=== PATIENT | female | born 1930 | race Caucasian/White ===

== ENCOUNTER 2017-12-24 15:21 | Inpatient (IN) | payer MEDICARE ==
--- NOTE | 2017-12-24 17:08 | CT ---
CT BRAIN WITHOUT CONTRAST: Date: 12/24/17 HISTORY: Trauma, fall, dementia. FINDINGS: Comparison made with exam of 12/29/13. Changes of cortical atrophy and chronic small vessel ischemic disease are again seen. The ventricular size is stable and the basilar cisterns are patent. No evidence of acute infarct, hemorrhage, midlin e shift, or abnormal extra-axial fluid collections are seen. The bony calvarium is intact. The visual ized paranasal sinuses and mastoid air cells are well aerated. IMPRESSION: No CT evidence of acute intracranial process. POS: [facility]
--- NOTE | 2017-12-24 17:10 | CT ---
CT FACIAL BONES WITH CORONAL AND SAGITTAL REFORMATIONS: Date: 12/24/17 HISTORY: Fall, trauma, bruising to right side of face. FINDINGS/IMPRESSION: No facial bone fracture is seen. The visualized paranasal sinuses and mastoid air cells are well aera renetta. No temporomandibular dislocation is seen. There is soft tissue swelling of the right cheek. POS: [facility]
--- NOTE | 2017-12-24 17:12 | RAD ---
2 VIEWS RIGHT HIP: Date; 12/24/17 COMPARISON: 12/10/11. HISTORY: Fall, trauma, pain. FINDINGS: There is a total hip arthroplasty on the right. There is heterotopic bone superior to the right great er trochanter. There is no evidence for hardware failure. No displaced fracture or evidence of disloc ation is seen. There is atherosclerotic calcification involving the medial aspect of the right thigh. The bones appear demineralized, limiting detailed assessment for nondisplaced fracture. IMPRESSION: Postoperative changes. No displaced fracture or evidence of dislocation seen. POS: [facility]
--- NOTE | 2017-12-24 17:16 | CT ---
CERVICAL SPINE CT WITHOUT CONTRAST: Date: 12/24/17 COMPARISON: None. HISTORY: Fall, injury, pain, dementia. TECHNIQUE: Serial axial CT imaging obtained at 2 mm intervals from the skull base through the lung apices withou t contrast. Coronal and sagittal reformatted imaging obtained. FINDINGS: The imaged lung apices demonstrate mild biapical interstitial thickening. The imaged paranasal sinuse s/mastoid air cells appear well aerated. The craniocervical junction, the atlantoaxial interspace, the occipital condyles, the dens, and the C 1-2 articulation demonstrate no acute findings. Motion artifact limits assessment of the mandible on the coronal imaging. Cervical vertebral body height and alignment appears within normal limits, with no evidence for ante rolisthesis or retrolisthesis. No prevertebral soft tissue swelling. The C1 ring is intact. No displaced fracture or evidence of dislocation is seen within the cervical spine. There is multilev el cervical spine facet and uncovertebral osteophyte formation, right greater than left. There is atherosclerotic calcification near the origin of the great vessels and involving the distal aspect of bilateral internal carotid arteries. IMPRESSION: No evidence for acute fracture or dislocation within the cervical spine. POS: [facility]
[2017-12-24 17:21] LABS: #Lymphocytes 1.8 thou/uL (1.20-3.40); #Monocytes 0.7 thou/uL (0.11-0.59); #Neutrophils 6.8 thou/uL (1.40-6.50); %Basophils 0.5 % (0.0-1.0); %Eosinophils 0.2 % (0.0-10.0); %Lymphocytes 19.8 % (21.0-51.0); %Neutrophils 72.5 % (42.0-75.0); Hemoglobin 12.5 g/dL (12.0-16.0); Mean Corpuscular HGB CONC 36.3 g/dL (32.0-36.0); Mean Corpuscular Volume 82.7 fL (78.0-98.0); Mean Platelet Volume 6.2 fL (7.4-10.4); Platelet Count 248 thou/uL (130-400); RBC Distribution Width 9.9 % (11.5-14.5); Red Blood Cell (RBC) Count 4.15 mill/uL (4.20-5.40); White Blood Cell (WBC) Count 9.3 thou/uL (4.8-10.8)
[2017-12-24 17:29] LABS: Bilirubin Negative (Negative); Blood, Urine Trace (Negative); Clarity Clear (Clear); Glucose, Urine (Dipstick) Negative (Negative); Leukocyte Negative (Negative); Nitrite Negative (Negative); Protein, Urine (Dipstick) Negative (Neg-Trace); Specific Gravity, Urine 1.015 (1.005-1.030); pH, Urine 6.5 (5.0-9.0)
[2017-12-24 17:32] LABS: ALT (SGPT) 25 U/L (8-55); AST (SGOT) 88 U/L (5-34); Albumin 3.8 g/dL (3.4-4.8); Alkaline Phosphatase 108 U/L (40-150); Anion Gap 16 mmol/L (10-20); BUN (Urea Nitrogen) 18 mg/dL (9.8-20.1); Bilirubin, Total 0.9 mg/dL (0.2-1.2); Calc. Creatinine Clearance 0 mL/min (70-130); Carbon Dioxide 22 mmol/L (23-31); Chloride 78 mmol/L (98-107); Estimated GFR-MDRD 56; Globulin 3.4 g/dL (2.4-3.5); Glucose 152 mg/dL (83-110); Potassium 4.2 mmol/L (3.5-5.1); Protein, Total 7.2 g/dL (6.0-8.3)
[2017-12-24 17:35] LABS: Sodium 112 mmol/L (136-145)
[2017-12-24 17:38] LABS: Bacteria/HPF Rare-Few HPF (None Seen); RBC/HPF 0-3 HPF (0-3); Squamous Epithelial 0-3 HPF (0-3); WBC/HPF None Seen HPF (0-3)
[2017-12-24 17:41] LABS: CKMB 13.5 ng/mL (0-6.6); Critical Call Chem Troponin I 0; Troponin I 0.784 ng/mL (< 0.028)
[2017-12-24] MEDS ORDERED: Cyanide Antidote Kit ONE (17:58)
[2017-12-24] MEDS ORDERED: Enoxaparin Sodium 100 MG/ML SYRINGE ONE (18:06)
[2017-12-24 20:40] LABS: Troponin I 0.988 ng/mL (< 0.028)
[2017-12-24 21:49] LABS: Osmolality, Serum 238 mOsm/kg (280-295)
[2017-12-24] MEDS ORDERED: Ondansetron HCl/PF 4 MG/2 ML Vial IVP PRN (22:29)
[2017-12-24] MEDS ORDERED: Acetaminophen 325 MG TAB PO PRN (22:29)
[2017-12-24] MEDS ORDERED: Ondansetron ODT 4 MG TAB SL PRN (22:29)
[2017-12-24 23:05] LABS: Sodium 108 mmol/L (136-145)
[2017-12-24 23:25] LABS: Troponin I 0.923 ng/mL (< 0.028)
[2017-12-25 00:27] VITALS: BMI 37.9
[2017-12-25] MEDS ORDERED: Acetaminophen 500 MG TAB PO PRN (00:56)
[2017-12-25] MEDS ORDERED: Lorazepam 0.5 MG TAB PO PRN (00:56)
[2017-12-25] MEDS ORDERED: Sodium Chloride 3% 500 ML IVPB SCH ×3 (01:00→19:30)
[2017-12-25 02:07] LABS: Anion Gap 15 mmol/L (10-20); BUN (Urea Nitrogen) 16 mg/dL (9.8-20.1); Calc. Creatinine Clearance 75 mL/min (70-130); Calcium 8.8 mg/dL (7.8-10.44); Carbon Dioxide 23 mmol/L (23-31); Chloride 77 mmol/L (98-107); Estimated GFR-MDRD 64; Glucose 129 mg/dL (83-110); Potassium 3.7 mmol/L (3.5-5.1)
[2017-12-25 02:13] LABS: Sodium 111 mmol/L (136-145)
[2017-12-25 03:22] LABS: Anion Gap 14 mmol/L (10-20); BUN (Urea Nitrogen) 15 mg/dL (9.8-20.1); Calc. Creatinine Clearance 75 mL/min (70-130); Calcium 8.7 mg/dL (7.8-10.44); Carbon Dioxide 22 mmol/L (23-31); Chloride 78 mmol/L (98-107); Estimated GFR-MDRD 64; Glucose 119 mg/dL (83-110); Potassium 4.2 mmol/L (3.5-5.1); Sodium 110 mmol/L (136-145)
[2017-12-25 03:27] LABS: Band 1 % (5-11); Hemoglobin 12.4 g/dL (12.0-16.0); Lymphocytes 22 % (21-51); MDiff Complete? YES; Mean Corpuscular HGB CONC 36.8 g/dL (32.0-36.0); Mean Corpuscular Hemoglobin 32.4 pg (27.0-31.0); Mean Corpuscular Volume 88.1 fL (78.0-98.0); Mean Platelet Volume 7.7 fL (7.4-10.4); Monocytes 11 % (0-10); Neutrophil 66 % (42-75); PLT Morphology Comment Appears Decreased; Platelet Count 117 thou/uL (130-400); RBC Distribution Width 11.1 % (11.5-14.5); RBC Morphology Normal; Red Blood Cell (RBC) Count 3.82 mill/uL (4.20-5.40); White Blood Cell (WBC) Count 7.4 thou/uL (4.8-10.8)
[2017-12-25] MEDS ORDERED: Dextrose 5% in Water 1,000 ML IV PRN (04:01)
[2017-12-25] MEDS ORDERED: Insulin Regular 300 UNITS/3 ML VIAL SC PRN (04:01)
[2017-12-25] MEDS ORDERED: Dextrose 50% Abboject 50 ML SYRINGE SLOW IVP PRN (04:01)
[2017-12-25 05:37] LABS: Anion Gap 15 mmol/L (10-20); BUN (Urea Nitrogen) 14 mg/dL (9.8-20.1); Calc. Creatinine Clearance 85 mL/min (70-130); Calcium 8.3 mg/dL (7.8-10.44); Carbon Dioxide 18 mmol/L (23-31); Chloride 78 mmol/L (98-107); Estimated GFR-MDRD 74; Glucose 110 mg/dL (83-110); Potassium 3.4 mmol/L (3.5-5.1)
[2017-12-25 05:42] LABS: Sodium 108 mmol/L (136-145)
[2017-12-25] MEDS: Sodium Chloride 3% 500 ML IVPB SCH ×2 (07:21→15:35)
[2017-12-25 08:06] LABS: Anion Gap 11 mmol/L (10-20); BUN (Urea Nitrogen) 13 mg/dL (9.8-20.1); Calc. Creatinine Clearance 81 mL/min (70-130); Calcium 8.6 mg/dL (7.8-10.44); Carbon Dioxide 24 mmol/L (23-31); Chloride 80 mmol/L (98-107); Estimated GFR-MDRD 73; Glucose 105 mg/dL (83-110); Potassium 3.5 mmol/L (3.5-5.1)
[2017-12-25 08:12] LABS: Sodium 111 mmol/L (136-145)
--- NOTE | 2017-12-25 08:27 | HP ---
CODE STATUS: DNR/DNI. I have discussed with daughter-power of erisa attorney at bedside. PRIMARY CARE PHYSICIAN: Dr. Radha Yan. TIME OF EVALUATION: 11:35 p.m. CHIEF COMPLAINT: Status post fall. HISTORY OF PRESENT ILLNESS: This is an 87-year-old female patient with past medical history of demen tia, came to the hospital after having a fall in the intermediate, history regarding fall is not very clear, patient hit her face on the right side. As per report, patient has had some nausea, associat ed gait unsteadiness, patient had been received some change in medications regarding her bilateral le g edema reportedly had been started on metolazone. She has also reported that the patient has past m edical history of low sodium, with level of sodium 108 in 2017. At that time, she had been seen by Sofia Ervin. Symptoms were reported as severe, no alleviating factors. The patient's sodium was f ound to be 110, came down to 108. Case discussed with Dr. Ervin, we will treat with 3% with a g oal of correction of 4 mEq every 2 hours. REVIEW OF SYSTEMS: Unable to obtain. Patient has dementia. PAST MEDICAL HISTORY: Hyponatremia, SIADH, hyperlipidemia, hypertension, dementia. PAST SURGICAL HISTORY: Knee replacement, hip replacement, back surgery and stents, hysterectomy. SOCIAL HISTORY: Patient lives in a intermediate, no alcohol, no drugs. FAMILY HISTORY: Reviewed and noncontributory for current presentation. ALLERGIES: No known drug allergies. REPORTED MEDICATIONS: Metolazone, metformin, Namenda, niacin, nystatin, omeprazole, potassium chlori de, psyllium, sulfamethoxazole and trimethoprim, triamcinolone, Tylenol, aspirin, atorvastatin, carve dilol, citalopram, docusate, donepezil, ferrous gluconate, Lasix, haloperidol, ketaconazole, lisinopr il, lorazepam. PHYSICAL EXAMINATION: VITAL SIGNS: On presentation blood pressure 142/57 with heart rate 72, respiratory rate was 18, temp erature 98.6, oxygen saturation 94% on room air. GENERAL APPEARANCE: The patient is alert, disoriented, not in any acute distress. HEENT: Eyes, normal conjunctivae. Moist oral mucosa. Anicteric. Patient has right periorbital hem atoma. RESPIRATORY: Bilateral air entry. No rales, no wheezing. Symmetric expansion. CARDIOVASCULAR: Normal rate, regular rhythm. No murmurs, no gallop, no edema. ABDOMEN: Soft, normal bowel sounds. MUSCULOSKELETAL: Patient has generalized weakness, no tenderness. SKIN: Warm and dry. No pallor, no rash, no redness. NEUROLOGIC: Baseline sensory. No evidence of any new focal weakness. Baseline speech, cranial nerv es seem to be intact. PSYCHIATRIC: Patient is in good mood, underlying dementia, suboptimal judgment. IMAGING: EKG was reviewed discussed with the performing physician, first-degree AV block, left anter ior fascicular block, moderate voltage criteria for LVH. No evidence of any acute ischemia. Radiolo gy: Head CT, right cheek contusion with no evidence of fracture, soft tissue swelling without eviden ce of fracture. Cervical spine CT was negative for acute findings, multilevel degenerative joint dis ease, but no acute fractures. Lower extremity, hip films negative on the right reports were done by radiologist. LABORATORY DATA AND X-RAY FINDINGS: Reviewed, patient has white count 7.4, hemoglobin 12, platelet c ount 117. Chemistry: Initial sodium 112, second sodium 108, third sodium 110. Serum osmolarity 238 . Troponin 0.7, second one 0.9, . Urine sodium 84. Urine osmolality 447. ASSESSMENT AND PLAN: The patient will be placed in the hospital with following medical problems: 1. Status post fall, likely secondary to hyponatremia. We will treat underlying condition, recommen dations regarding safety in intermediate has been discussed with daughter at bedside. 2. Severe hyponatremia. Patient has sodium of 112 on presentation, came down to 108. After startin g hypertonic saline came out to 110, we will replace sodium with 3% hypertonic saline for now for 25 mL hours, dose has been adjusted per Dr. Ervin's recommendation. We will follow recommendation. Likely secondary to syndrome of inappropriate antidiuretic hormone secretion. 3. Possible syndrome of inappropriate antidiuretic hormone secretion, patient has a history of hypon atremia. It was severe in past year, treated by Dr. Ervin. Patient has high urinary sodium, hi gh urine osmolality, and low sodium osmolality that goes with syndrome of inappropriate antidiuretic hormone secretion. Treatment as above. 4. Non-ST elevation myocardial infarction, possible type 2, troponin 0.7, second one 0.9, patient tapia d Lovenox prior to transfer to the hospital. Dr. Richardson, patient's hogshead salvage, has been consulte d, we will follow recommendation. Home medications has been reconciled. 5. Underlying dementia, patient is confused, in good mood, reconcile home medications. We will need a support as inpatient. 6. Hyperlipidemia, reconcile home medications. Low cholesterol diet has advised. 7. Controlled hypertension, reconcile home medications. Adjust treatment as needed. 8. Uncontrolled diabetes. The patient presented with blood sugar 152, we will place the patient on sliding scale and low carbohydrate diet. 9. Deep venous thrombosis prophylaxis.
[2017-12-25] MEDS ORDERED: Niacin 500 MG TAB PO SCH (09:00)
[2017-12-25] MEDS ORDERED: Potassium Chloride 8 MEQ TAB PO SCH (09:00)
[2017-12-25] MEDS ORDERED: Ferrous Gluconate 324 MG TAB PO SCH (09:00)
[2017-12-25] MEDS ORDERED: Citalopram 10 MG TAB PO SCH (09:00)
[2017-12-25] MEDS ORDERED: Non-Formulary Item 1 EACH (Omeprazole [Omeprazole] 20 MG) PO SCH (09:00)
[2017-12-25] MEDS: Docusate 100 MG CAP PO SCH (09:36)
[2017-12-25] MEDS: Aspirin 325 MG TAB PO SCH (09:36)
[2017-12-25] MEDS: Lisinopril 20 MG TAB PO SCH (09:36)
[2017-12-25] MEDS: Carvedilol 25 MG TAB PO SCH (09:37)
[2017-12-25] MEDS: Enoxaparin Sodium 40 MG/0.4 ML SYRINGE SC SCH (09:37)
[2017-12-25] MEDS: Ketoconazole 2% Cream 15 gm Tube TOP SCH ×2 (09:38→20:32)
[2017-12-25] MEDS: Nystatin Powder 15 GM BOT TOP SCH ×2 (09:38→20:32)
[2017-12-25] MEDS: Metamucil PACK PO SCH (09:38)
[2017-12-25 11:50] LABS: Anion Gap 15 mmol/L (10-20); BUN (Urea Nitrogen) 14 mg/dL (9.8-20.1); Calc. Creatinine Clearance 77 mL/min (70-130); Calcium 8.3 mg/dL (7.8-10.44); Carbon Dioxide 19 mmol/L (23-31); Chloride 82 mmol/L (98-107); Estimated GFR-MDRD 69; Glucose 130 mg/dL (83-110)
[2017-12-25 11:55] LABS: Sodium 112 mmol/L (136-145)
[2017-12-25 13:50] LABS: Anion Gap 15 mmol/L (10-20); BUN (Urea Nitrogen) 16 mg/dL (9.8-20.1); Calc. Creatinine Clearance 70 mL/min (70-130); Carbon Dioxide 18 mmol/L (23-31); Chloride 82 mmol/L (98-107); Estimated GFR-MDRD 62; Glucose 160 mg/dL (83-110)
[2017-12-25 13:57] LABS: Sodium 111 mmol/L (136-145)
[2017-12-25 14:39] LABS: Anion Gap 14 mmol/L (10-20); BUN (Urea Nitrogen) 17 mg/dL (9.8-20.1); Calc. Creatinine Clearance 70 mL/min (70-130); Carbon Dioxide 17 mmol/L (23-31); Chloride 84 mmol/L (98-107); Estimated GFR-MDRD 62; Glucose 149 mg/dL (83-110); Potassium 3.8 mmol/L (3.5-5.1)
[2017-12-25 14:46] LABS: Sodium 111 mmol/L (136-145)
--- NOTE | 2017-12-25 16:07 | PDOC.PN ---
- Subjective Encounter Start Date: 12/25/17 Encounter Start Time: 16:00 Subjective: f/u for severe hyponatremia and fall. Currently on hypertonic saline -: but Na+ remains in 111-112 range. - Objective Resuscitation Status: Resuscitation Status DNR:Do Not Resuscitate MAR Reviewed: Yes Vital Signs & Weight: Vital Signs (12 hours) Temp Pulse Resp Pulse Ox 12/25/17 12:00 98.6 F 12/25/17 08:00 98.5 F 69 19 95 12/25/17 05:00 98.1 F Weight Weight 215 lb 1.6 oz Most Recent Monitor Data Heart Rate from ECG 66 NIBP 78/35 NIBP BP-Mean 48 Respiration from ECG 13 SpO2 94 I&O: 12/24/17 12/25/17 12/26/17 06:59 06:59 06:59 Intake Total 120 487 Output Total 1200 862 Balance -1080 -375 Result Diagrams: 12/25/17 02:45 12/25/17 14:03 Additional Labs: Accuchecks 12/25/17 12/25/17 11:59 06:43 POC Glucose 153 H 122 H Radiology Reviewed by me: Yes (CT brain - negative) EKG Reviewed by me: Yes (Tele - SR) Phys Exam - Physical Examination sleeping HEENT: PERRLA, sclera anicteric, oral pharynx no lesions Neck: no nodes, no JVD, supple, full ROM Respiratory: no wheezing, no rales, no rhonchi, clear to auscultation bilateral S1, S2 Cardiovascular: RRR, no significant murmur, no rub, gallop Gastrointestinal: soft, non-tender, no distention, positive bowel sounds Musculoskeletal: pulses present, edema present sleeping, + spontaneous movements and fasciculations of extremities Skin: no rash, normal turgor, cap refill <2 seconds Deviation from normal: Verdugo with dark, dayami urine Dx/Plan (1) Hyponatremia Code(s): E87.1 - HYPO-OSMOLALITY AND HYPONATREMIA Status: Acute Comment: severe hyponatremia on current hypertonic saline gtt, serial Na+ q2h (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 Comment: See #1, Nephrology service following (3) Fall Code(s): W19.XXXA - UNSPECIFIED FALL, INITIAL ENCOUNTER Status: Acute Comment: PT evaluation for functional assessment when stable (4) NSTEMI (non-ST elevated myocardial infarction) Code(s): I21.4 - NON-ST ELEVATION (NSTEMI) MYOCARDIAL INFARCTION Status: Acute Comment: Consult Cardiology, continue ASA 325mg daily, check 2D echo for wall motion abnormalities and EF (5) Alzheimer's dementia Code(s): G30.9 - ALZHEIMER'S DISEASE, UNSPECIFIED Status: Chronic Comment: Continue Aricept and Namenda - Plan plan discussed w/ family, PT/OT, DVT proph w/SCDs Continue NS 3% IV with serial Na+ -: May consider more volume replacement as clinically dehydrated -: Check 2D echo -: Hold Lisinopril and Coreg due to hypotension -: AM lab: BMP, serial Na+ * .
[2017-12-25 17:30] LABS: Anion Gap 13 mmol/L (10-20); BUN (Urea Nitrogen) 17 mg/dL (9.8-20.1); Calc. Creatinine Clearance 74 mL/min (70-130); Calcium 7.8 mg/dL (7.8-10.44); Carbon Dioxide 19 mmol/L (23-31); Chloride 88 mmol/L (98-107); Estimated GFR-MDRD 66; Glucose 129 mg/dL (83-110); Potassium 3.7 mmol/L (3.5-5.1)
[2017-12-25 17:33] LABS: Sodium 116 mmol/L (136-145)
[2017-12-25 19:58] LABS: Anion Gap 11 mmol/L (10-20); BUN (Urea Nitrogen) 16 mg/dL (9.8-20.1); Calc. Creatinine Clearance 76 mL/min (70-130); Carbon Dioxide 20 mmol/L (23-31); Chloride 90 mmol/L (98-107); Estimated GFR-MDRD 68; Glucose 146 mg/dL (83-110); Potassium 3.5 mmol/L (3.5-5.1)
[2017-12-25 20:01] LABS: Sodium 117 mmol/L (136-145)
[2017-12-25] MEDS: Atorvastatin Calcium 20 MG TAB PO SCH (20:31)
[2017-12-25] MEDS ORDERED: Donepezil HCl 5 MG TAB PO SCH (21:00)
[2017-12-25 21:53] LABS: Sodium 118 mmol/L (136-145)
[2017-12-25 23:43] LABS: Sodium 119 mmol/L (136-145)
[2017-12-26 02:39] LABS: Sodium 119 mmol/L (136-145)
--- NOTE | 2017-12-26 03:14 | CON ---
DATE OF CONSULTATION: 12/25/2017 CONSULTING PHYSICIAN: Aziza Hylton MD REQUESTING PHYSICIAN: Dr. Layne. ER PHYSICIAN: Leopold. REASON FOR CONSULTATION: Severe symptomatic hyponatremia. IMPRESSION: Severe symptomatic hyponatremia. This is likely in the context of syndrome of inappropriate antidiur etic hormone compounded by the recent use of hydrochlorothiazide. PLAN: 1. Urine osmolarity and urine sodium to rule out SIADH. 2. High-protein intake and be aware of animal meat. 3. Hypotonic saline with the goal of increase in the sodium level by 1-point every 2 hours. The pat ient will need critical care admission for close monitoring. 4. Once the sodium level has been stabilized around 120, we transitioned this patient over to SIADH is confirmed. 5. Further management will be dependent on the clinical course. HISTORY OF PRESENT ILLNESS: History is that of an 87-year-old female patient with a known history of hyponatremia in the context of SIADH, who I took care of sometime last year with similar complaint. This time around, the patient took a fall and presented to the ER and noted to be severely hyponatre felipe with sodium level of 112. Over the course of stay in the ER, sodium level has dropped down to 10 8 necessitating need for renal consultation. The patient denies any nausea or vomiting. However, of note, patient recently was placed on metolazone in addition to the patient placed on diuretics to co ntrol the lower extremity edema. PAST MEDICAL HISTORY: Significant for hyponatremia, SIADH, dyslipidemia, hypertension, dementia. MEDICATIONS: Reviewed and as documented on [employer]. SOCIAL HISTORY: No alcohol, no tobacco, no illicit drug use. REVIEW OF SYSTEMS: Could not be obtained given the mental status of this patient. FAMILY HISTORY: None significantly related to presenting illness. ALLERGIES: No known drug allergy. PHYSICAL EXAMINATION: GENERAL: The patient was found to be alert. VITAL SIGNS: Noted with the following vital signs, afebrile, blood pressure 116/54, respiratory rate of 18, O2 sat of 97%. HEENT: Unremarkable with dry oral mucosa. NECK: Supple. No conjunctival injection or icterus. CARDIOVASCULAR SYSTEM: First and second heart sounds were heard. RESPIRATORY SYSTEM: Clear to auscultation. DIGESTIVE SYSTEM: Revealed a benign abdomen with positive bowel sounds. EXTREMITIES: No peripheral edema. SKIN: No new gross rash. LYMPHATICS: No peripheral lymphadenopathy. SUMMARY: An 87-year-old female patient with a known history of hyponatremia, who presented with jon re symptomatic hyponatremia in the context of recent use of metolazone. We will strongly recommend t hat this patient avoid class of hydrochlorothiazide diuretics entirely.
--- NOTE | 2017-12-26 05:08 | CON ---
DATE OF CONSULTATION: 12/25/2017 HISTORY OF PRESENT ILLNESS: Raul is a pleasant 87-year-old female who was admitted early this morning after a fall. She has a history of mild dementia. She is living in assisted living. Her daughter who is at the bedside and was very helpful with the history. She was found to be severely hyponatremic and subsequently is being admitted for treatment. PAST MEDICAL HISTORY: Reportedly for SIADH. I ordered a cortisol and TSH and they are both normal today. She has a history of lipid disorder, hypertension, knee replacement, hip replacement, back surgery, coronary stenting, and hysterectomy. SOCIAL HISTORY: Non-smoker, nondrinker, nondrug user. ALLERGIES: She has no drug allergies. FAMILY HISTORY: Negative for lung disease. MEDICATIONS: Prior to admission, she was on metolazone, metformin, Namenda, niacin, nystatin, omeprazole, potassium, Bactrim, triamcinolone, atorvastatin, Coreg, citalopram, docusate, omeprazole, iron, Lasix, Haldol, ketaconazole, lisinopril, lorazepam. REVIEW OF SYSTEMS: 10 point system review completed; not obtainable. PHYSICAL EXAMINATION: GENERAL: She is confused. She does know where she is. She does know her name. She recognizes her daughter. VITAL SIGNS: Heart rate 68. Blood pressure is 92/37, respiratory rate 16. HEENT: Pupils react. Sclerae is anicteric. Extraocular movements are full. NECK: Supple, no lymphadenopathy. LUNGS: Clear. HEART: Regular rhythm, no S3, no murmur. ABDOMEN: Soft and nontender. EXTREMITIES: Without clubbing, cyanosis, or edema. NEUROLOGIC: Nonfocal. She is wheelchair bound normally. LABORATORY DATA: White count 7.4, hemoglobin 12.4, platelets 117,000. Sodium is up to 118 on admission of low of 108, 10:00 last night. Potassium 3.5, chloride 90, bicarbonate 20, BUN 16, creatinine 0.8, glucose 146. IMPRESSION: Hyponatremia likely secondary to syndrome of inappropriate antidiuretic hormone secretion. It is hard to believe someone in the detention could have taken a fluid excess. Given her relative hypotension, antihypertensives and her polypharmacy should be simplified. She had been followed with the other physicians caring for in the ICU. Debatable whether ongoing treatment of her lipids, we will change her length of life. She is on Coreg. Vitamin D. With regard to Celexa had after reviewed and see if SIADH has been reported this , but many of the antidepressants have been associated with SIADH in my experience. We will hold this for now. This is a 70 minute consult with greater than 50% of time spent on unit with coordination of care. RIKA
[2017-12-26 05:19] LABS: Sodium 120 mmol/L (136-145)
--- NOTE | 2017-12-26 06:16 | CON ---
DATE OF CONSULTATION: 12/25/2017 HISTORY OF PRESENT ILLNESS: This is an 87-year-old, white female that I have followed since 07/2008. At that time, I saw her for continuation of cardiac care after she moved to the area. In 02/2005, while living in [place], [place], she developed exertional fatigue as well as central chest pressure, which had been occurring for 1 month. She underwent cardiac catheterization and was found to have proximal left anterior descending lesion, and Taxus 3.0 x 16 mm stent was placed on 03/19/2005. She states that she only took Plavix for 1 month after that. In 10/2007, she was evaluated and underwent an IV Persantine- thallium testing without any ST segment changes, and no evidence of ischemia or infarction. She then moved to this area, and when I initially saw her, she was asymptomatic. She continued to be seen for periodic followup. In 12/2008, she complained of low energy level and it was recommended that she go to outpatient cardiac rehabilitation, which she did at [facility]. When she was seen on 07/26/2009, she complained of a discomfort in the right side of her chest when she was walking in the cold that lasted for approximately 5 minutes. She underwent Lexiscan Cardiolite testing, which was abnormal with evidence of mild ischemia in a small area of the distal anterior wall. With this finding , it was recommended that she undergo cardiac catheterization. This was performed in 08/2009. She had normal left ventricular function with ejection fraction of 50% to 55%. There was a 20% in-stent restenosis in the proximal LAD stent. Otherwise, her coronary arteries were unremarkable. She has continued to be followed in the office and has developed Alzheimer disease and is now at a snf. She was last seen in 02/2017, and at that time, she was fairly asymptomatic. She now is admitted after a fall at the snf. She has been found to be profoundly hyponatremic. Ms. Carter denies any recent chest discomfort. She had borderline elevated cardiac enzymes, and Cardiology consultation was requested. PAST MEDICAL HISTORY: Hypertension, diabetes, hypercholesterolemia, Alzheimer disease. OPERATIONS: Three sections, bilateral total knee replacement, open cholecystectomy, bilateral cataract surgery, hip replacement, hysterectomy. MEDICATIONS: Aspirin 325 daily, atorvastatin 20 at bedtime, carvedilol 25 b.i.d., citalopram 10 mg daily, Colace 100 daily, Aricept 10 at bedtime, Fergon 324 daily, furosemide 20 mg , Haldol 0.5 mg at bedtime, lisinopril 20 mg daily, lorazepam 0.5 mg q.8 hours p.r.n., Namenda 10 mg b.i.d., metformin 500 daily, niacin 500 daily, nystatin topical b.i.d., omeprazole 20 daily, KCl 8 mEq daily , Bactrim 1 b.i.d. ALLERGIES: None. SOCIAL HISTORY: She does not smoke or drink. 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 FAMILY HISTORY: Father had angina, started at age 51. Several myocardial infarctions and at age 67. Sister had unknown type of heart problem. No family history of CABG. REVIEW OF SYSTEMS: Unable to be obtained due to the patient's dementia. PHYSICAL EXAMINATION: VITAL SIGNS: Blood pressure 94/37 and pulse of 69. HEENT: PERRL. NECK: Supple. LUNGS: Chest is clear. CARDIAC: S1, S2 normal, without any S3, S4, or murmurs. ABDOMEN: Obese. Normal bowel sounds, no tenderness. EXTREMITIES: Revealed trace pretibial edema. NEUROLOGIC: The patient is alert, oriented, moves all extremities. SKIN: Warm and dry. LABORATORY DATA AND X-RAY FINDINGS: EKG revealed sinus rhythm with first- degree AV block, left anterior fascicular block. Hemoglobin 12.4, hematocrit 33.7, white count 7400, platelets 117,000. Sodium is as low as 108, most recent is 117. Potassium 3.5, chloride 90, carbon dioxide 20, BUN 16, creatinine 0.82. Troponin I 0.988. IMPRESSION: 1. Fall, probably secondary to severe hyponatremia. 2. History of coronary artery disease, status post stent placement in the proximal left anterior descending. In 2010, this continued to show good result. 3. Demand ischemia versus [id number] myocardial infarction. She denies any chest discomfort. 4. Hypertension. 5. Hypercholesterolemia. 6. Diabetes. 7. Dementia. PLAN: With a demented, snf patient who is DNR and not complaining of any chest pain, I do not feel any further evaluation is warranted for her abnormal troponin I. [facility]
[2017-12-26 07:31] LABS: Sodium 120 mmol/L (136-145)
[2017-12-26] MEDS: Sodium Chloride 0.9% 1,000 ML IV SCH ×3 (08:33→23:15)
[2017-12-26] MEDS: Aspirin 325 MG TAB PO SCH (08:34)
[2017-12-26] MEDS: Enoxaparin Sodium 40 MG/0.4 ML SYRINGE SC SCH (08:34)
[2017-12-26] MEDS: Docusate 100 MG CAP PO SCH (08:35)
[2017-12-26] MEDS: Metamucil PACK PO SCH (08:36)
[2017-12-26] MEDS: Ketoconazole 2% Cream 15 gm Tube TOP SCH ×3 (08:37→22:23)
[2017-12-26] MEDS: Nystatin Powder 15 GM BOT TOP SCH ×2 (08:37→22:23)
[2017-12-26 09:42] LABS: Sodium 122 mmol/L (136-145)
--- NOTE | 2017-12-26 10:49 | PRG ---
DATE OF SERVICE: 12/26/2017 Caroline Carter is doing well. I talked to her primary physician today about her. She was recently started on metolazone. I suspect a combination of Celexa and metolazone led to her severe hyponatrem ia. She is very pleasant and cooperative today. PHYSICAL EXAMINATION: VITAL SIGNS: Blood pressure 121/44, heart rate 66, respiratory rate 15, oximetry is 97. LUNGS: Clear. HEART: Regular rhythm. ABDOMEN: Soft. EXTREMITIES: Without asymmetry. She has minimal peripheral edema. LABORATORY DATA: White count 7.4, hemoglobin 12.4, platelets 117,000. Sodium is up to 122. The remainder of her electrolytes were not rechecked today. I will order these for tomorrow. She is medically stable, she can move to a medical bed. We will continue with supportive care. Her Celexa has been discontinued. She is not on a diuretic at this time.
[2017-12-26] MEDS ORDERED: Tolvaptan 15 MG TAB PO SCH (13:45)
[2017-12-26 16:24] LABS: Sodium 123 mmol/L (136-145)
--- NOTE | 2017-12-26 17:49 | PDOC.PN ---
- Subjective Encounter Start Date: 12/26/17 Encounter Start Time: 17:35 Subjective: f/u for severe hyponatremia completing hypertonic saline and IVF's. No new -: complaints. Ambulating with walker to bathroom. - Objective Resuscitation Status: Resuscitation Status DNR:Do Not Resuscitate MAR Reviewed: Yes Vital Signs & Weight: Vital Signs (12 hours) Temp Pulse Resp BP Pulse Ox 12/26/17 16:45 98.1 F 89 16 134/64 12/26/17 14:32 97.9 F 68 18 12/26/17 14:25 97.9 F 68 18 118/68 97 12/26/17 11:00 98.3 F 12/26/17 08:00 98.5 F 70 21 H 97 Weight Weight 209 lb 3.499 oz Most Recent Monitor Data Heart Rate from ECG 77 NIBP 113/53 NIBP BP-Mean 81 Respiration from ECG 19 SpO2 96 I&O: 12/25/17 12/26/17 12/27/17 06:59 06:59 06:59 Intake Total 120 2545 410 Output Total 1200 1766 350 Balance -1080 779 60 Result Diagrams: 12/25/17 02:45 12/26/17 15:47 Additional Labs: Accuchecks 12/26/17 12/26/17 12/26/17 16:46 11:53 06:07 POC Glucose 127 H 142 H 135 H 12/25/17 12/25/17 21:47 17:46 POC Glucose 195 H 135 H Microbiology 12/24/17 17:22 Urine Straight Catheter Urine Culture - Final NO GROWTH AT 36 HOURS Laboratory Tests 12/24/17 12/25/17 12/25/17 17:10 11:18 13:09 Plt Count 248 Sodium 112 L* 111 L* TSH 3rd Generation Cortisol 12/25/17 12/25/17 12/25/17 14:03 14:03 21:28 Plt Count Sodium 118 L* TSH 3rd Generation 1.5797 Cortisol 15.80 12/25/17 12/26/17 12/26/17 23:19 02:07 04:39 Plt Count Sodium 119 L* 119 L* 120 L TSH 3rd Generation Cortisol 12/26/17 12/26/17 07:13 09:16 Plt Count Sodium 120 L 122 L TSH 3rd Generation Cortisol Phys Exam - Physical Examination Constitutional: NAD alert, responsive R periorbital edema and ecchymosis HEENT: PERRLA, sclera anicteric, oral pharynx no lesions Neck: no nodes, no JVD, supple, full ROM Respiratory: no wheezing, no rales, no rhonchi, clear to auscultation bilateral S1, S2 Cardiovascular: RRR, no significant murmur, no rub, gallop Gastrointestinal: soft, non-tender, no distention, positive bowel sounds Musculoskeletal: no edema, pulses present Neurological: normal sensation, moves all 4 limbs A x O x 1 Skin: no rash, normal turgor, cap refill <2 seconds Dx/Plan (1) Hyponatremia Code(s): E87.1 - HYPO-OSMOLALITY AND HYPONATREMIA Status: Acute Comment: severe hyponatremia improving, off IVF's currently, resume regular diet, serial Na+ (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 Comment: See #1 for mgmt (3) Fall Code(s): W19.XXXA - UNSPECIFIED FALL, INITIAL ENCOUNTER Status: Acute Comment: PT evaluation for functional assessment when stable (4) NSTEMI (non-ST elevated myocardial infarction) Code(s): I21.4 - NON-ST ELEVATION (NSTEMI) MYOCARDIAL INFARCTION Status: Acute Comment: Consult Cardiology, continue ASA 325mg daily, 2D echo pending (5) Alzheimer's dementia Code(s): G30.9 - ALZHEIMER'S DISEASE, UNSPECIFIED Status: Chronic Comment: Continue Aricept and Namenda - Plan PT/OT, social media job titles, out of bed/ambulate, DVT proph w/SCDs Stable overall -: Continue regular diet -: Continue ASA, Lipitor and Coreg -: PT for mobilization and functional assessment -: AM lab: BMP, CBC * D/C Lovenox due to thrombocytopenia
[2017-12-26 19:38] LABS: Sodium 123 mmol/L (136-145)
[2017-12-26] MEDS: Atorvastatin Calcium 20 MG TAB PO SCH (21:10)
--- NOTE | 2017-12-26 22:50 | PRG ---
DATE OF SERVICE: 12/26/2017 SUBJECTIVE: Patient is seen and examined today and seems to be feeling much better now and the sodiu m level is improved noted with the following vital signs. OBJECTIVE: VITAL SIGNS: Afebrile, temperature 97.9, pulse 68, respiratory rate of 18, blood pressure 134/64. HEENT: Unremarkable. Moist oral mucosa. NECK: Supple. No conjunctival injection or icterus. CARDIOVASCULAR: First and heart sounds were heard. RESPIRATORY: Clear to auscultation. DIGESTIVE SYSTEM: Revealed a benign abdomen with positive bowel sounds. EXTREMITIES: No peripheral edema. SKIN: No new gross rash. LYMPHATICS: No peripheral lymphadenopathy. IMPRESSION: 1. Severe hyponatremia in the context of syndrome of inappropriate antidiuretic hormone. 2. Fall, likely related to severe hyponatremia. PLAN: 1. Discontinue hypertonic saline. 2. Start this patient on tolvaptan. 3. Liberalize the fluid intake. 4. Normal saline the current bag is finished. 5. Increase protein intake. 6. Further management to be dependent on the clinical course. Please reduce the frequency of sodium .
[2017-12-27 04:16] LABS: Anion Gap 12 mmol/L (10-20); BUN (Urea Nitrogen) 11 mg/dL (9.8-20.1); Calc. Creatinine Clearance 86 mL/min (70-130); Calcium 8.5 mg/dL (7.8-10.44); Carbon Dioxide 22 mmol/L (23-31); Chloride 93 mmol/L (98-107); Estimated GFR-MDRD 80; Glucose 119 mg/dL (83-110); Potassium 3.4 mmol/L (3.5-5.1); Sodium 124 mmol/L (136-145)
[2017-12-27 04:24] LABS: Band 4 % (5-11); Eosinophils 3 % (0-10); Hemoglobin 10.2 g/dL (12.0-16.0); Lymphocytes 19 % (21-51); MDiff Complete? YES; Mean Corpuscular HGB CONC 35.9 g/dL (32.0-36.0); Mean Corpuscular Hemoglobin 32.5 pg (27.0-31.0); Mean Corpuscular Volume 90.4 fL (78.0-98.0); Mean Platelet Volume 5.9 fL (7.4-10.4); Monocytes 12 % (0-10); Neutrophil 62 % (42-75); Platelet Count 199 thou/uL (130-400); RBC Distribution Width 11.3 % (11.5-14.5); Red Blood Cell (RBC) Count 3.13 mill/uL (4.20-5.40); White Blood Cell (WBC) Count 6.8 thou/uL (4.8-10.8)
[2017-12-27] MEDS: Aspirin 325 MG TAB PO SCH ×2 (07:59→08:00)
[2017-12-27] MEDS: Docusate 100 MG CAP PO SCH (08:00)
[2017-12-27] MEDS: Ketoconazole 2% Cream 15 gm Tube TOP SCH ×2 (08:01→20:04)
[2017-12-27] MEDS: Nystatin Powder 15 GM BOT TOP SCH ×2 (08:01→20:04)
[2017-12-27] MEDS: Tolvaptan 15 MG TAB PO SCH (08:08)
[2017-12-27] MEDS: Metamucil PACK PO SCH (12:12)
--- NOTE | 2017-12-27 15:25 | PDOC.PN ---
- Subjective Encounter Start Date: 12/27/17 Encounter Start Time: 15:15 Subjective: f/u for hyponatremia currently improved with fluid restriction and -: Tolvaptan. Feeling better overall. Ambulating with walker. Appetite ok. - Objective Resuscitation Status: Resuscitation Status DNR:Do Not Resuscitate MAR Reviewed: Yes Vital Signs & Weight: Vital Signs (12 hours) Temp Pulse Resp BP Pulse Ox 12/27/17 11:00 97.8 F 66 20 132/67 96 12/27/17 08:00 98.8 F 71 20 136/87 96 Weight Weight 209 lb 3.499 oz Most Recent Monitor Data Heart Rate from ECG 77 NIBP 113/53 NIBP BP-Mean 81 Respiration from ECG 19 SpO2 96 I&O: 12/26/17 12/27/17 12/28/17 06:59 06:59 06:59 Intake Total 2545 890 Output Total 1766 350 Balance 779 540 Result Diagrams: 12/27/17 03:19 12/27/17 03:19 Additional Labs: Accuchecks 12/27/17 12/27/17 12/26/17 11:58 05:50 20:11 POC Glucose 148 H 118 H 160 H 12/26/17 16:46 POC Glucose 127 H Microbiology 12/24/17 17:22 Urine Straight Catheter Urine Culture - Final NO GROWTH AT 36 HOURS Laboratory Tests 12/24/17 12/25/17 12/25/17 17:10 11:18 13:09 Plt Count 248 Sodium 112 L* 111 L* Potassium TSH 3rd Generation Cortisol 12/25/17 12/25/17 12/25/17 14:03 14:03 16:51 Plt Count Sodium Potassium 3.7 TSH 3rd Generation 1.5797 Cortisol 15.80 12/25/17 12/25/17 12/25/17 19:25 21:28 23:19 Plt Count Sodium 118 L* 119 L* Potassium 3.5 TSH 3rd Generation Cortisol 12/26/17 12/26/17 12/26/17 02:07 04:39 07:13 Plt Count Sodium 119 L* 120 L 120 L Potassium TSH 3rd Generation Cortisol 12/26/17 12/26/17 12/26/17 09:16 15:47 19:20 Plt Count Sodium 122 L 123 L 123 L Potassium TSH 3rd Generation Cortisol Radiology Reviewed by me: Yes (2D echo - EF 55-60%, diast dysfxn) Phys Exam - Physical Examination Constitutional: NAD smiling, responsive R periorbital ecchymosis HEENT: PERRLA, sclera anicteric, oral pharynx no lesions Neck: no nodes, no JVD, supple, full ROM Respiratory: no wheezing, no rales, no rhonchi, clear to auscultation bilateral S1, S2 Cardiovascular: RRR, no significant murmur, no rub, gallop Gastrointestinal: soft, non-tender, no distention, positive bowel sounds Musculoskeletal: no edema, pulses present Neurological: non-focal, normal sensation, moves all 4 limbs A x O x 2 Skin: no rash, normal turgor, cap refill <2 seconds Dx/Plan (1) Hyponatremia Code(s): E87.1 - HYPO-OSMOLALITY AND HYPONATREMIA Status: Acute Comment: severe hyponatremia improving, Tolvaptan 15mg daily, serial Na+ (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 Comment: See #1 for mgmt (3) Fall Code(s): W19.XXXA - UNSPECIFIED FALL, INITIAL ENCOUNTER Status: Acute Comment: PT evaluation for functional assessment when stable (4) Alzheimer's dementia Code(s): G30.9 - ALZHEIMER'S DISEASE, UNSPECIFIED Status: Chronic Comment: Continue Aricept and Namenda (5) Demand ischemia of myocardium Code(s): I24.8 - OTHER FORMS OF ACUTE ISCHEMIC HEART DISEASE Status: Acute Comment: Continue ASA 325mg daily - Plan plan discussed w/ family, PT/OT, social work manager, out of bed/ambulate, DVT proph w/SCDs Stable overall -: Continue Tolvaptan 15mg po daily -: Serial Na+ -: OOB/ambulate -: AM lab: BMP * .
--- NOTE | 2017-12-27 15:37 | PRG ---
DATE OF SERVICE: 12/27/2017 SUBJECTIVE: Caroline Carter says she is feeling better. OBJECTIVE: VITAL SIGNS: Stable. LUNGS: Clear. HEART: Regular rhythm. ABDOMEN: Soft. Obviously, she has short term memory problems. Her medicines have been simplified. LABORATORY DATA: White count 6.8, hemoglobin 10.2. Sodium is up to 124. I suspect this will be bet ter tomorrow with fluid restriction. She was also given tolvaptan today. I suspect her problem would resolve with some fluid restriction. I will continue to follow with the other physicians. I met with the daughter and answered all of her questions.
[2017-12-27] MEDS: Carvedilol 25 MG TAB PO SCH ×2 (16:46→19:58)
[2017-12-27] MEDS: Lisinopril 20 MG TAB PO SCH (16:46)
[2017-12-27] MEDS: Atorvastatin Calcium 20 MG TAB PO SCH (20:04)
--- NOTE | 2017-12-28 01:02 | PRG ---
DATE OF SERVICE: 12/27/2017 SUBJECTIVE: The patient was seen and examined, feeling much better, noted with the following vital s igns. OBJECTIVE: VITAL SIGNS: Afebrile, temperature 97.8, pulse 66, respiratory rate of 20, blood pressure 132/67, O2 sat 96%. HEENT: Unremarkable with moist oral mucosa. No conjunctival injection or icterus. NECK: Supple. CARDIOVASCULAR SYSTEM: First and second heart sounds were heard. RESPIRATORY SYSTEM: Clear to auscultation. DIGESTIVE SYSTEM: Revealed a benign abdomen with positive bowel sounds. EXTREMITIES: No peripheral edema. SKIN: No new gross rash. LYMPHATICS: No peripheral lymphadenopathy. LABORATORY INVESTIGATION: Showed a sodium level of 124. IMPRESSION: 1. Hyponatremia in the context of syndrome of inappropriate antidiuretic hormone. 2. Fall, likely related to hyponatremia. PLAN: 1. From now, we will continue . 2. High protein intake in the way of animal meat. 3. Monitor the sodium closely. 4. Disposition planning per the primary team.
[2017-12-28 04:03] LABS: Anion Gap 13 mmol/L (10-20); BUN (Urea Nitrogen) 8 mg/dL (9.8-20.1); Calc. Creatinine Clearance 94 mL/min (70-130); Calcium 8.6 mg/dL (7.8-10.44); Carbon Dioxide 24 mmol/L (23-31); Chloride 92 mmol/L (98-107); Estimated GFR-MDRD 89; Glucose 129 mg/dL (83-110); Potassium 3.2 mmol/L (3.5-5.1); Sodium 126 mmol/L (136-145)
[2017-12-28] MEDS: Lisinopril 20 MG TAB PO SCH ×2 (08:12→08:20)
[2017-12-28] MEDS: Aspirin 325 MG TAB PO SCH (08:12)
[2017-12-28] MEDS: Tolvaptan 15 MG TAB PO SCH (08:13)
[2017-12-28] MEDS: Carvedilol 25 MG TAB PO SCH ×2 (08:16→20:09)
[2017-12-28] MEDS: Docusate 100 MG CAP PO SCH (08:17)
[2017-12-28] MEDS: Nystatin Powder 15 GM BOT TOP SCH ×2 (08:18→20:11)
[2017-12-28] MEDS: Ketoconazole 2% Cream 15 gm Tube TOP SCH ×2 (08:18→20:11)
[2017-12-28] MEDS: Metamucil PACK PO SCH (08:19)
--- NOTE | 2017-12-28 10:33 | PDOC.PN ---
- Subjective Encounter Start Date: 12/28/17 Encounter Start Time: 10:31 - Objective Resuscitation Status: Resuscitation Status DNR:Do Not Resuscitate MAR Reviewed: Yes Vital Signs & Weight: Vital Signs (12 hours) Temp Pulse Resp BP BP Pulse Ox 12/28/17 08:20 108/63 12/28/17 08:00 98.1 F 76 20 108/63 95 Weight Weight 209 lb 3.499 oz Most Recent Monitor Data Heart Rate from ECG 77 NIBP 113/53 NIBP BP-Mean 81 Respiration from ECG 19 SpO2 96 I&O: 12/27/17 12/28/17 12/29/17 06:59 06:59 06:59 Intake Total 890 1240 Output Total 350 Balance 540 1240 Result Diagrams: 12/27/17 03:19 12/28/17 03:23 Additional Labs: Accuchecks 12/28/17 12/27/17 12/27/17 06:01 19:54 17:01 POC Glucose 143 H 156 H 125 H 12/27/17 11:58 POC Glucose 148 H Phys Exam - Physical Examination Constitutional: NAD HEENT: sclera anicteric Neck: supple Respiratory: no wheezing, no rales Cardiovascular: RRR Gastrointestinal: soft Musculoskeletal: no edema Psychiatric: normal affect, A&O x 3 Skin: no rash Deviation from normal: bruises present Dx/Plan (1) Fall Code(s): W19.XXXA - UNSPECIFIED FALL, INITIAL ENCOUNTER Status: Acute Comment: PT evaluation for functional assessment when stable (2) SIADH (syndrome of inappropriate ADH production) Status: Acute Comment: See #1 for mgmt (3) Hypokalemia Code(s): E87.6 - HYPOKALEMIA Status: Acute (4) Hyponatremia Code(s): E87.1 - HYPO-OSMOLALITY AND HYPONATREMIA Status: Acute Comment: severe hyponatremia improving, Tolvaptan 15mg daily, serial Na+ (5) CAD (coronary artery disease) Code(s): I25.10 - ATHSCL HEART DISEASE OF [place] CORONARY ARTERY W/O ANG PCTRS Status: Chronic (6) Diabetes type 2, controlled Code(s): E11.9 - TYPE 2 DIABETES MELLITUS WITHOUT COMPLICATIONS Status: Chronic (7) Dyslipidemia Code(s): E78.5 - HYPERLIPIDEMIA, UNSPECIFIED Status: Chronic - Plan cont current plan of care, PT/OT, elementary school social worker * . continue vaptan f/u with nephrology replete K AM labs
[2017-12-28] MEDS ORDERED: Potassium Chloride 20 MEQ TAB PO SCH (10:45)
[2017-12-28] MEDS: Atorvastatin Calcium 20 MG TAB PO SCH (20:09)
[2017-12-29 05:20] LABS: Anion Gap 13 mmol/L (10-20); BUN (Urea Nitrogen) 10 mg/dL (9.8-20.1); Calc. Creatinine Clearance 84 mL/min (70-130); Calcium 8.4 mg/dL (7.8-10.44); Carbon Dioxide 26 mmol/L (23-31); Chloride 92 mmol/L (98-107); Estimated GFR-MDRD 78; Glucose 129 mg/dL (83-110); Magnesium 1.7 mg/dL (1.6-2.6); Potassium 3.6 mmol/L (3.5-5.1); Sodium 127 mmol/L (136-145)
[2017-12-29] MEDS: Metamucil PACK PO SCH (08:50)
[2017-12-29] MEDS: Aspirin 325 MG TAB PO SCH (08:51)
[2017-12-29] MEDS: Lisinopril 20 MG TAB PO SCH (08:52)
[2017-12-29] MEDS: Carvedilol 25 MG TAB PO SCH ×2 (08:52→21:44)
[2017-12-29] MEDS: Tolvaptan 15 MG TAB PO SCH (08:53)
[2017-12-29] MEDS: Ketoconazole 2% Cream 15 gm Tube TOP SCH ×2 (08:53→21:44)
[2017-12-29] MEDS: Docusate 100 MG CAP PO SCH (08:53)
[2017-12-29] MEDS: Nystatin Powder 15 GM BOT TOP SCH ×2 (08:54→21:44)
--- NOTE | 2017-12-29 10:56 | PDOC.PN ---
- Subjective Encounter Start Date: 12/29/17 Encounter Start Time: 10:52 Patient thinks she feels well, but checks with her daughter to make sure. Told her daughter at one point this morning that she was feeling lethargic. Does not feel that way now. - Objective Resuscitation Status: Resuscitation Status DNR:Do Not Resuscitate MAR Reviewed: Yes Vital Signs & Weight: Vital Signs (12 hours) Temp Pulse Resp BP BP Pulse Ox 12/29/17 08:52 121/69 12/29/17 08:19 98.7 F 75 18 121/69 94 L 12/29/17 08:00 98.7 F 75 18 12/29/17 00:29 98.2 F 70 20 105/62 95 Weight Weight 209 lb 3.499 oz Most Recent Monitor Data Heart Rate from ECG 77 NIBP 113/53 NIBP BP-Mean 81 Respiration from ECG 19 SpO2 96 I&O: 12/28/17 12/29/17 12/30/17 06:59 06:59 06:59 Intake Total 1240 1680 Balance 1240 1680 Result Diagrams: 12/27/17 03:19 12/29/17 03:59 Additional Labs: Accuchecks 12/28/17 12/28/17 12/28/17 20:12 16:53 12:02 POC Glucose 167 H 132 H 181 H Phys Exam - Physical Examination Right periorbital ecchymosis. Neck: no JVD, supple Respiratory: no wheezing, no rales, no rhonchi, clear to auscultation bilateral Cardiovascular: RRR, no significant murmur, no rub Gastrointestinal: soft, non-tender, no distention, positive bowel sounds Musculoskeletal: no edema Pleasant, but no short term memory. Psychiatric: normal affect Dx/Plan (1) Demand ischemia of myocardium Code(s): I24.8 - OTHER FORMS OF ACUTE ISCHEMIC HEART DISEASE Status: Acute Comment: Continue ASA 325mg daily (2) Fall Code(s): W19.XXXA - UNSPECIFIED FALL, INITIAL ENCOUNTER Status: Acute Comment: Likely related to the hyponatremia. (3) SIADH (syndrome of inappropriate ADH production) Status: Acute Comment: Recurrent problem. Improving on Vaptan. Patient is in an [facility] and with her dementia, she is not controlling her intake of fluids. May need to stay on the vaptan, but not sure if she will be able to get this outpatient. (4) Hyponatremia Code(s): E87.1 - HYPO-OSMOLALITY AND HYPONATREMIA Status: Acute Comment: severe hyponatremia improving, Tolvaptan 15mg daily, serial Na+ (5) Alzheimer's dementia Code(s): G30.9 - ALZHEIMER'S DISEASE, UNSPECIFIED Status: Chronic Comment: Continue Aricept and Namenda - Plan * Recheck sodium in am * Will try to determine if she will be able to get the Tolvaptan as outpatient.
--- NOTE | 2017-12-29 18:54 | PRG ---
DATE OF SERVICE: 12/29/2017 SUBJECTIVE: The patient is seen and examined with no new complaints, feeling much better. Noted wit h the following vital signs. OBJECTIVE: VITAL SIGNS: Afebrile, temperature 97.2, pulse 68, respiratory rate 16, O2 sat 96% with blood pressu re 94/62, 107/69. HEENT: Unremarkable. Moist oral mucosa. Neck was supple, No conjunctival injection or icterus. CARDIOVASCULAR SYSTEM: First and second heart sounds were heard. RESPIRATORY SYSTEM: Clear to auscultation. DIGESTIVE SYSTEM: Revealed a benign abdomen with positive bowel sounds. EXTREMITIES: No peripheral edema. SKIN: No new gross rash. ____ peripheral lymphadenopathy. LABORATORY INVESTIGATIONS: Showed sodium of 127. IMPRESSION: Hyponatremia in the context of syndrome of inappropriate antidiuretic hormone syndrome o f inappropriate ADH secretion. PLAN: 1. We will continue with tolvaptan. 2. High protein intake in the way of animal meat. 3. Further management to be dependent on the clinical course and the renal standpoint, the patient i s good for discharge with a very close outpatient Nephrology followup strongly recommended.
[2017-12-29] MEDS: Atorvastatin Calcium 20 MG TAB PO SCH (21:44)
[2017-12-30 05:01] LABS: Anion Gap 14 mmol/L (10-20); BUN (Urea Nitrogen) 12 mg/dL (9.8-20.1); Calc. Creatinine Clearance 82 mL/min (70-130); Calcium 8.4 mg/dL (7.8-10.44); Carbon Dioxide 24 mmol/L (23-31); Chloride 92 mmol/L (98-107); Estimated GFR-MDRD 77; Glucose 130 mg/dL (83-110); Potassium 3.4 mmol/L (3.5-5.1); Sodium 127 mmol/L (136-145)
[2017-12-30] MEDS: Docusate 100 MG CAP PO SCH (09:49)
[2017-12-30] MEDS: Metamucil PACK PO SCH (09:49)
[2017-12-30] MEDS: Lisinopril 20 MG TAB PO SCH (09:49)
[2017-12-30] MEDS: Aspirin 325 MG TAB PO SCH (09:49)
[2017-12-30] MEDS: Ketoconazole 2% Cream 15 gm Tube TOP SCH ×2 (09:50→20:22)
[2017-12-30] MEDS: Nystatin Powder 15 GM BOT TOP SCH ×2 (09:50→20:22)
[2017-12-30] MEDS: Tolvaptan 15 MG TAB PO SCH (09:50)
[2017-12-30] MEDS: Carvedilol 25 MG TAB PO SCH ×2 (09:50→20:21)
[2017-12-30] MEDS: Atorvastatin Calcium 20 MG TAB PO SCH (20:20)
--- NOTE | 2017-12-30 21:51 | PDOC.PN ---
- Subjective Encounter Start Date: 12/30/17 Encounter Start Time: 17:00 Feels well. No complaints. - Objective Resuscitation Status: Resuscitation Status DNR:Do Not Resuscitate Vital Signs & Weight: Vital Signs (12 hours) Temp Pulse Resp BP BP BP Pulse Ox 12/30/17 19:31 97.6 F 71 18 95 12/30/17 19:30 97.6 F 71 18 104/56 L 95 12/30/17 16:36 98.1 F 67 16 97/62 12/30/17 12:20 97.6 F 76 16 113/50 L 12/30/17 09:49 115/68 Weight Weight 209 lb 3.499 oz Most Recent Monitor Data Heart Rate from ECG 77 NIBP 113/53 NIBP BP-Mean 81 Respiration from ECG 19 SpO2 96 I&O: 12/29/17 12/30/17 12/31/17 06:59 06:59 06:59 Intake Total 1680 1175 600 Balance 1680 1175 600 Result Diagrams: 12/27/17 03:19 12/30/17 03:25 Additional Labs: Accuchecks 12/30/17 12/30/17 12/30/17 19:37 16:34 12:07 POC Glucose 232 H 141 H 113 H 12/30/17 12/29/17 05:33 17:12 POC Glucose 138 H 146 H Phys Exam - Physical Examination Constitutional: NAD Pleasantly confused. Neck: no JVD, supple Respiratory: no wheezing, no rales, no rhonchi, clear to auscultation bilateral Cardiovascular: RRR, no significant murmur Gastrointestinal: soft, non-tender, no distention, positive bowel sounds Musculoskeletal: no edema Psychiatric: normal affect Dx/Plan (1) Demand ischemia of myocardium Code(s): I24.8 - OTHER FORMS OF ACUTE ISCHEMIC HEART DISEASE Status: Acute Comment: Continue ASA 325mg daily (2) Fall Code(s): W19.XXXA - UNSPECIFIED FALL, INITIAL ENCOUNTER Status: Acute Comment: Likely related to the hyponatremia. (3) SIADH (syndrome of inappropriate ADH production) Status: Acute Comment: Stable on Tolvaptan. Recurrent problem. Improving on Vaptan. Patient is in an [facility] and with her dementia, she is not controlling her intake of fluids. May need to stay on the vaptan, but not sure if she will be able to get this outpatient. Daughter is helping to find an affordable, available source of the med. If not successful, will keep for a few days. (4) Hyponatremia Code(s): E87.1 - HYPO-OSMOLALITY AND HYPONATREMIA Status: Acute Comment: severe hyponatremia improving, Tolvaptan 15mg daily, serial Na+ (5) Alzheimer's dementia Code(s): G30.9 - ALZHEIMER'S DISEASE, UNSPECIFIED Status: Chronic Comment: Continue Aricept and Namenda - Plan * above.
[2017-12-31 04:55] LABS: Anion Gap 14 mmol/L (10-20); BUN (Urea Nitrogen) 15 mg/dL (9.8-20.1); Calc. Creatinine Clearance 76 mL/min (70-130); Calcium 8.7 mg/dL (7.8-10.44); Carbon Dioxide 26 mmol/L (23-31); Chloride 93 mmol/L (98-107); Estimated GFR-MDRD 70; Glucose 128 mg/dL (83-110); Potassium 3.5 mmol/L (3.5-5.1); Sodium 129 mmol/L (136-145)
[2017-12-31] MEDS: Ketoconazole 2% Cream 15 gm Tube TOP SCH ×2 (09:03→20:46)
[2017-12-31] MEDS: Nystatin Powder 15 GM BOT TOP SCH ×2 (09:04→20:47)
[2017-12-31] MEDS: Aspirin 325 MG TAB PO SCH (09:04)
[2017-12-31] MEDS: Tolvaptan 15 MG TAB PO SCH (09:04)
[2017-12-31] MEDS: Lisinopril 20 MG TAB PO SCH (09:04)
[2017-12-31] MEDS: Docusate 100 MG CAP PO SCH (09:05)
[2017-12-31] MEDS: Carvedilol 25 MG TAB PO SCH ×2 (09:05→20:43)
[2017-12-31] MEDS: Metamucil PACK PO SCH (09:08)
--- NOTE | 2017-12-31 11:15 | PRG ---
DATE OF SERVICE: 12/30/2017 SUBJECTIVE: The patient noted with the following vital signs. OBJECTIVE: VITAL SIGNS: Afebrile with temperature 98.1, pulse 57, respiratory rate 16, blood pressure 115/60. HEENT: Unremarkable with moist oral mucosa. CARDIOVASCULAR SYSTEM: First and second heart sounds were heard. RESPIRATORY SYSTEM: Clear to auscultation. DIGESTIVE SYSTEM: Revealed a benign abdomen with positive bowel sounds. EXTREMITIES: No peripheral edema. SKIN: No new gross rash. LYMPHATICS: No peripheral lymphadenopathy. IMPRESSION: Hyponatremia in the context of syndrome of inappropriate antidiuretic hormone. PLAN: 1. The patient to continue with high protein diet in the way of animal meat. 2. Patient to be on tolvaptan, possibly for the next 7 days. 3. From the renal standpoint, the patient is good to be discharged on tolvaptan for the next 7 days with the plan to follow up with me within the next 1-2 weeks.
--- NOTE | 2017-12-31 14:25 | PRG ---
DATE OF SERVICE: 12/31/2017 SUBJECTIVE: The patient states she feels very well. Her only complaint is that she needs another pi llow. She has no physical complaints today. OBJECTIVE: VITAL SIGNS: Temperature is 97.8, pulse 69, BP 148/67, O2 sat 95% on room air. GENERAL: Age-appropriate female in no distress. HEENT: She continued to have some right periorbital ecchymoses. HEART: Regular rate and rhythm without murmurs, gallops, or rubs. LUNGS: Clear to auscultation bilaterally. No wheezes or rales. ABDOMEN: Soft, nontender, nondistended. EXTREMITIES: No edema. LABORATORY DATA: Sodium 129, potassium 3.5, chloride 93, CO2 is 26, BUN 15, creatinine 0.8, glucose 141 to 132, calcium 8.7. ASSESSMENT: 1. Syndrome of inappropriate antidiuretic hormone secretion. This appears to be chronic/recurrent p roblem with this patient, resulting in symptomatic hyponatremia. 2. Hyponatremia. The patient has been followed by Nephrology. She is on oral tolvaptan. Her anamaria toledo is coming up with that. Plan from Nephrology was to have the patient discharged to continue on the tolvaptan for another few days. Unfortunately, tolvaptan is becoming impossible to get on the outpa tient basis. We will continue with another day of tolvaptan here and see what her sodium is. At amrit t point, we can talk with Dr. Ervin again and determine if we need to continue with that or if s he is okay to be discharged at that time. 3. Alzheimer's disease. Continue with the Aricept and Namenda. DISPOSITION: As above. If the tolvaptan can be found on an outpatient basis, in a way that the ar ent can obtain it, it would be reasonable to discharge home on oral tolvaptan. Unfortunately, that i s likely going to be very challenging to do. Therefore, we will keep the patient here at least one m ore day to see if her sodium will continue to rise and then discuss again with Nephrology the actual long-term need for the oral tolvaptan. We will also recheck the patient's liver function test in the morning.
[2017-12-31] MEDS: Atorvastatin Calcium 20 MG TAB PO SCH (20:46)
--- NOTE | 2017-12-31 21:32 | PRG ---
DATE OF SERVICE: 12/31/2017 SUBJECTIVE: The patient was seen and examined, seems to be doing well, no new complaint, very eager to go home, noted with the following vital signs. PHYSICAL EXAMINATION: VITAL SIGNS: Afebrile, temperature 97.4, pulse 59, respiratory rate 20, O2 sat 95% with blood pressu re 112/71. HEENT: Unremarkable. Moist oral mucosa. Neck was supple. No conjunctival injection or icterus. CARDIOVASCULAR: First and second heart sounds were heard. RESPIRATORY: Clear to auscultation. DIGESTIVE SYSTEM: Revealed a benign abdomen with positive bowel sounds. EXTREMITIES: No peripheral edema. SKIN: No new gross rash. LYMPHATICS: No peripheral lymphadenopathy. LABORATORY INVESTIGATION: Showed sodium of 129. IMPRESSION: Hyponatremia in the context of syndrome of inappropriate antidiuretic hormone, improving on anti-ADH medication. PLAN: 1. The patient from the renal standpoint is good for discharge, on a 7-day course of tolvaptan 50 mg daily. 2. Outpatient followup in about 2 weeks with me to reevaluate the progress of the sodium management. 3. Further management to be dependent on the clinical course.
[2018-01-01 04:50] LABS: ALT (SGPT) 18 U/L (8-55); AST (SGOT) 25 U/L (5-34); Albumin 3.3 g/dL (3.4-4.8); Alkaline Phosphatase 79 U/L (40-150); Anion Gap 12 mmol/L (10-20); BUN (Urea Nitrogen) 15 mg/dL (9.8-20.1); Bilirubin, Direct 0.5 mg/dL (0.1-0.3); Calc. Creatinine Clearance 81 mL/min (70-130); Calcium 8.8 mg/dL (7.8-10.44); Carbon Dioxide 28 mmol/L (23-31); Chloride 97 mmol/L (98-107); Estimated GFR-MDRD 75; Glucose 119 mg/dL (83-110); Potassium 3.6 mmol/L (3.5-5.1); Sodium 133 mmol/L (136-145)
[2018-01-01] MEDS: Tolvaptan 15 MG TAB PO SCH (08:03)
[2018-01-01] MEDS: Docusate 100 MG CAP PO SCH (08:05)
[2018-01-01] MEDS: Carvedilol 25 MG TAB PO SCH (08:08)
[2018-01-01] MEDS: Ketoconazole 2% Cream 15 gm Tube TOP SCH (08:09)
[2018-01-01] MEDS: Nystatin Powder 15 GM BOT TOP SCH (08:10)
[2018-01-01] MEDS: Metamucil PACK PO SCH (08:11)
[2018-01-01] MEDS: Lisinopril 20 MG TAB PO SCH (08:12)
[2018-01-01] MEDS: Aspirin 325 MG TAB PO SCH (08:15)
--- NOTE | 2018-01-01 12:16 | PDOC.PN ---
- Subjective Encounter Start Date: 01/01/18 Encounter Start Time: 12:14 Ms. Carter was seen today in follow-up. She does not have any complaints today. - Objective Resuscitation Status: Resuscitation Status DNR:Do Not Resuscitate MAR Reviewed: Yes Vital Signs & Weight: Vital Signs (12 hours) Temp Pulse Resp BP BP Pulse Ox 01/01/18 08:12 105/58 L 01/01/18 07:54 97.7 F 78 20 111/67 94 L Weight Weight 209 lb 3.499 oz Most Recent Monitor Data Heart Rate from ECG 77 NIBP 113/53 NIBP BP-Mean 81 Respiration from ECG 19 SpO2 96 I&O: 12/31/17 01/01/18 01/02/18 06:59 06:59 06:59 Intake Total 840 910 Balance 840 910 Result Diagrams: 12/27/17 03:19 01/01/18 03:28 Additional Labs: Accuchecks 01/01/18 01/01/18 12/31/17 11:11 04:20 20:45 POC Glucose 132 H 131 H 149 H 12/31/17 16:49 POC Glucose 141 H Phys Exam - Physical Examination HEENT: PERRLA Respiratory: no wheezing, no rales, no rhonchi, clear to auscultation bilateral Cardiovascular: RRR, no significant murmur, no rub Gastrointestinal: soft, non-tender, positive bowel sounds Musculoskeletal: no edema Dx/Plan (1) SIADH (syndrome of inappropriate ADH production) Status: Acute Comment: Stable on Tolvaptan. Recurrent problem. Improving on Vaptan. Patient is in an D[facility] and with her dementia, she is not controlling her intake of fluids. May need to stay on the vaptan, but not sure if she will be able to get this outpatient. Daughter is helping to find an affordable, available source of the med. If not successful, will keep for a few days. (2) Hyponatremia Code(s): E87.1 - HYPO-OSMOLALITY AND HYPONATREMIA Status: Acute Comment: severe hyponatremia improving, Tolvaptan 15mg daily, serial Na+ (3) Weakness generalized Code(s): R53.1 - WEAKNESS Status: Acute (4) Alzheimer's dementia Code(s): G30.9 - ALZHEIMER'S DISEASE, UNSPECIFIED Status: Chronic Comment: Continue Aricept and Namenda (5) CAD (coronary artery disease) Code(s): I25.10 - ATHSCL HEART DISEASE OF [place] CORONARY ARTERY W/O ANG PCTRS Status: Chronic (6) Diabetes type 2, controlled Code(s): E11.9 - TYPE 2 DIABETES MELLITUS WITHOUT COMPLICATIONS Status: Chronic - Plan * Hyponatremia due to SIADH- improved * stable for discharge home..
[2018-01-01 14:00] VITALS: BP 98/60; TEMP 97.9
--- NOTE | 2018-01-02 03:24 | DIS ---
DATE OF ADMISSION: 12/24/2017 DATE OF DISCHARGE: 01/01/2018 PRIMARY CARE PHYSICIAN: Dr. Radha Yan. DISCHARGE DISPOSITION: Home. DISCHARGE DIAGNOSES: 1. Hyponatremia secondary to syndrome of inappropriate antidiuretic hormone. 2. Alzheimer dementia. 3. Hypertension. 4. Hyperlipidemia. DISCHARGE MEDICATIONS: Please note that patient was taken off furosemide. She is to continue aspiri n 325 mg daily, Lipitor 20 mg at bedtime, Coreg 25 mg twice a day, vitamin D3 of 2000 units daily, ci talopram 10 mg daily, docusate 100 mg daily, Aricept 10 mg at bedtime. Ortiz gluconate 324 mg daily , Haldol 0.5 mg at bedtime, lisinopril 20 mg daily, ketaconazole topical twice a day, lisinopril 20 m g daily, lorazepam 0.5 mg, Namenda 10 mg twice a day, metformin 500 mg daily, niacin 500 mg daily, [place] statin powder as needed, omeprazole 20 mg daily, potassium chloride 8 mEq daily, and psyllium husk 0. 4 mg daily. PROCEDURES DONE DURING ADMISSION: The patient had an echocardiogram, which showed an ejection fracti on of 55% to 60%. She had some sigmoid shaped septum without significant LV outflow obstruction. Sh e had grade I/III diastolic dysfunction. CODE STATUS: FULL CODE. ALLERGIES: No known drug allergies. HOSPITAL COURSE: Mr. Carter is a pleasant 87-year-old female who presented to the emergency room wi th a fall and generalized weakness. She was found to have a serum sodium of 110 and reaching a alea to 108. 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 She was seen by Nephrology and she was initially placed on 3% saline with slow correct ion of her sodium. She was also placed on and her serum sodium antelmo to a high of 133. She was taken off Lasix and placed on fluid restriction and will be discharged back to the [facility] with the fluid restriction. She is to follow up with Dr. Yan in 1-2 weeks, at which time Dr. Yan can recommend, often she should get her serum sodium checked on a regular outpatient bas is. It is also noted that some of her psychotropic medications for dementia can cause hyponatremia. However, these are restarted as she was likely stable on those for some time before this particular episode occurred, also continued use of these medications can be determined by her primary care physi ele.
--- NOTE | 2018-01-02 10:36 | EKG ---
Test Reason : Blood Pressure : / mmHG Vent. Rate : 065 BPM Atrial Rate : 065 BPM P-R Int : 214 ms QRS Dur : 100 ms QT Int : 436 ms P-R-T Axes : 040 -52 012 degrees QTc Int : 453 ms Sinus rhythm with 1st degree A-V block Left anterior fascicular block Minimal voltage criteria for LVH, may be normal variant Left axis deviation Abnormal ECG Confirmed by LINDA STOVER ([id number]), business editor IRAJ HORTON ([id number]) on 01/02/2018 10:35:57 AM Referred By: Confirmed By:LINDA STOVER
--- NOTE | 2018-01-02 10:36 | EKG ---
Test Reason : Blood Pressure : / mmHG Vent. Rate : 066 BPM Atrial Rate : 066 BPM P-R Int : 226 ms QRS Dur : 100 ms QT Int : 440 ms P-R-T Axes : 000 -48 005 degrees QTc Int : 461 ms Sinus rhythm with 1st degree A-V block Left anterior fascicular block Moderate voltage criteria for LVH, may be normal variant Left axis deviation Abnormal ECG Confirmed by LINDA STOVER ([id number]), graphics editor IRAJ HORTON ([id number]) on 01/02/2018 10:36:08 AM Referred By: Confirmed By:LINDA STOVER
== END 2018-01-01 13:54 | DRG 643 ==
LOC: SCSER 15:21 → 2NO 21:08 → CCU 12-25 02:06 → T4-A 12-26 14:22
PROVIDERS: ADMIT Family Medicine; ATTEND Family Medicine
DX: E22.2 Syndrome of inappropriate secretion of antidiuretic hormone (principal); I21.A1 Myocardial infarction type 2; E78.5 Hyperlipidemia, unspecified; I10 Essential (primary) hypertension; G30.9 Alzheimer's disease, unspecified; F02.80 Dementia in other diseases classified elsewhere, unspecified severity, without behavioral disturbance, psychotic disturbance, mood disturbance, and anxiety; I25.10 Atherosclerotic heart disease of native coronary artery without angina pectoris; E11.9 Type 2 diabetes mellitus without complications; Z96.653 Presence of artificial knee joint, bilateral; Z66 Do not resuscitate; W19.XXXA Unspecified fall, initial encounter; Z99.3 Dependence on wheelchair; Z96.649 Presence of unspecified artificial hip joint; Z90.49 Acquired absence of other specified parts of digestive tract; Z95.5 Presence of coronary angioplasty implant and graft
CPT/HCPCS: 36415; 36416; 51701; 70450; 70486; 72125; 80048; 80053; 80076; 81003; 81015; 82533; 82553; 83735; 83930; 83935; 84295; 84300; 84443; 84484; 85007; 85025; 85027; 87086; 93005; 93306; 96372; A4216; A4353; J1650; J7131